=== PATIENT | male | born 1995 | race Hispanic/Latino ===

== ENCOUNTER 2022-09-09 20:00 | Observation (INO) | payer MEDICAID, OTHER ==
[~2022-09-09] VITALS: Ht 182.9 cm; Wt 128.6 kg
[2022-09-09] MEDS ORDERED: SOLU-MEDROL 125MG VIAL IVP ONE (20:30)
[2022-09-09] MEDS ORDERED: BUDESONIDE 0.5 MG/2 ML INH IH SCH (20:30)
[2022-09-09] MEDS ORDERED: IPRATROPIUM/ALBUTEROL SULFATE 3 ML SOLUTION IH ONE (20:30)
[2022-09-09] MEDS ORDERED: ALBUTEROL 0.083% 2.5 MG/3 ML INH IH ONE ×2 (20:30→20:33)
[2022-09-09] MEDS ORDERED: 0.9%NACL 1000ML 1,000 ML IV SCH ×2 (20:30→22:30)
[2022-09-09 20:39] LABS: BASOPHILS % (AUTO) 0.7 % (0.0-5.0); EOSINOPHILS % (AUTO) 5.4 % (0.0-8.0); HEMATOCRIT 45.9 % (42-54); LYMPHOCYTES % (AUTO) 10.1 % (21.0-51.0); MEAN CORPUSCULAR HEMOGLOBIN 30.2 pg (27.0-33.0); MEAN CORPUSCULAR HGB CONC 34.4 g/dL (32.0-36.0); MEAN CORPUSCULAR VOLUME 87.8 fL (79-99); MONOCYTES % (AUTO) 2.6 % (3.0-13.0); NEUTROPHILS % (AUTO) 80.9 % (40.0-77.0); PLATELET COUNT (AUTO) 235 K/uL (130-400); RED BLOOD CELL COUNT(AUTO) 5.23 MIL/uL (4.50-6.20); RED CELL DISTRIBUTION WIDTH 12.5 % (11.0-15.5); WHITE BLOOD COUNT (AUTO) 14.8 K/uL (4.8-10.8)
[2022-09-09 21:08] LABS: ALANINE AMINOTRANSFERASE 46 U/L (12-78); ALBUMIN 2.9 g/dL (3.5-5.0); ASPARTATE AMINOTRANSFERASE 29 U/L (10-37); CARBON DIOXIDE 26 mmol/L (21-32); CHLORIDE 112 mmol/L (101-111); CREATININE 0.8 mg/dL (0.5-1.5); GLOMERULAR FILTR. RATE CALC 122 mL/min (>60); GLUCOSE,RANDOM 92 mg/dL (70-105); SODIUM SERUM 147 mmol/L (136-145); TOTAL PROTEIN, SERUM 5.7 g/dL (6.0-8.3); UREA NITROGEN, BLOOD 10 mg/dL (7-18)
[2022-09-09 21:13] LABS: CREATINE KINASE, TOTAL 593 U/L (21-232); CRP QUANTITATIVE < 2.00 mg/L (0.00-9.0); POTASSIUM 2.8 mmol/L (3.5-5.1)
[2022-09-09] MEDS ORDERED: IPRATROPIUM 0.5 MG/2.5 ML INH IH ONE (21:30)
[2022-09-09] MEDS ORDERED: POTASSIUM BICARB/CIT AC 25 MEQ TABLET.EFF PO ONE (21:30)
[2022-09-09] MEDS ORDERED: MAGNESIUM 4GM PREMIX 100ML 100 ML IV PRN (22:30)
[2022-09-09] MEDS ORDERED: MAGNESIUM 2GM PREMIX 50ML 100 ML IV ONE (22:39)
[2022-09-09] MEDS ORDERED: IPRATROPIUM/ALBUTEROL SULFATE 3 ML SOLUTION IH PRN (23:00)
[2022-09-09] MEDS ORDERED: NITROGLYCERIN 0.4 MG SL TAB SL PRN (23:00)
[2022-09-09] MEDS ORDERED: ONDANSETRON 4MG INJ IV PRN (23:00)
[2022-09-09] MEDS ORDERED: ACETAMINOPHEN 325 MG TAB PO PRN ×2 (23:00)
[2022-09-09 23:05] LABS: APPEARANCE,URINE CLEAR (CLEAR); BILIRUBIN,URINE NEGATIVE (NEGATIVE); GLUCOSE, URINE (UA) NEGATIVE (NEGATIVE); KETONES,URINE NEGATIVE (NEGATIVE); LEUKOCYTE ESTERASE ,URINE NEGATIVE Leu/uL (NEGATIVE); NITRATE,URINE NEGATIVE (NEGATIVE); OCCULT BLOOD,URINE NEGATIVE (NEGATIVE); PROTEIN,URINE NEGATIVE (NEGATIVE); UROBILINOGEN,URINE 0.2 mg/dL (0.2-1.0)
[2022-09-09 23:10] LABS: AMPHET/METH SCREEN,URINE NEGATIVE (NEGATIVE); BARBITURATE SCREEN, URINE NEGATIVE (NEGATIVE); BENZODIAZEPINES SCREEN,URINE POSITIVE (NEGATIVE); CANNABINOID SCREEN,URINE POSITIVE (NEGATIVE); COCAINE SCREEN,URINE POSITIVE (NEGATIVE); COLOR,URINE YELLOW (YELLOW); OPIATE SCREEN,URINE NEGATIVE (NEGATIVE); PHENCYCLIDINE SCREEN,URINE NEGATIVE (NEGATIVE)
[2022-09-09 23:43] LABS: CRP QUANTITATIVE < 2.00 mg/L (0.00-9.0)
[2022-09-10] MEDS: LACTATED RINGERS 1000ML 1,000 ML IV SCH ×2 (00:05→08:35)
[2022-09-10 00:10] VITALS: BP 131/76
[2022-09-10] MEDS: IPRATROPIUM/ALBUTEROL SULFATE 3 ML SOLUTION IH SCH ×2 (01:42)
[2022-09-10] MEDS ORDERED: IPRATROPIUM 0.5 MG/2.5 ML INH IH ONE (01:43)
[2022-09-10] MEDS: IPRATROPIUM 0.5 MG/2.5 ML INH IH SCH ×2 (01:55→06:31)
[2022-09-10 04:00] VITALS: BP 149/63
[2022-09-10] MEDS ORDERED: SOLU-MEDROL 125MG VIAL IVP SCH ×2 (04:00→07:30)
[2022-09-10 06:11] LABS: BASOPHILS % (AUTO) 0.1 % (0.0-5.0); EOSINOPHILS % (AUTO) 0.1 % (0.0-8.0); LYMPHOCYTES % (AUTO) 6.7 % (21.0-51.0); MEAN CORPUSCULAR VOLUME 88.3 fL (79-99); MONOCYTES % (AUTO) 0.7 % (3.0-13.0); NEUTROPHILS % (AUTO) 91.9 % (40.0-77.0); PLATELET COUNT (AUTO) 209 K/uL (130-400); RED BLOOD CELL COUNT(AUTO) 4.87 MIL/uL (4.50-6.20); RED CELL DISTRIBUTION WIDTH 12.6 % (11.0-15.5); WHITE BLOOD COUNT (AUTO) 14.6 K/uL (4.8-10.8)
[2022-09-10 06:45] LABS: ALBUMIN 3.6 g/dL (3.5-5.0); CREATININE 1.2 mg/dL (0.5-1.5); MAGNESIUM 2.1 mg/dL (1.80-2.40); POTASSIUM 4.7 mmol/L (3.5-5.1); TOTAL PROTEIN, SERUM 7.8 g/dL (6.0-8.3)
[2022-09-10 08:00] VITALS: BP 145/74
[2022-09-10] MEDS ORDERED: ENOXAPARIN SODIUM 40 MG/0.4 ML SYRINGE SQ SCH (09:00)
[2022-09-10] MEDS ORDERED: FAMOTIDINE 20MG TAB PO SCH (09:00)
[2022-09-10] MEDS ORDERED: PRED20TA3 PO (09:21)
[2022-09-10] MEDS ORDERED: IPRAHFA IH (09:21)
[2022-09-10] MEDS ORDERED: AZIT500T4 PO (09:21)
== END 2022-09-10 12:30 | disposition still patient (30) ==
LOC: EDH 20:00 → INTOOBSV 20:01 → EDHIP 20:01 → 4BH 23:19
PROVIDERS: ADMIT Hospitalist; ATTEND Hospitalist
DX: J45.901 Unspecified asthma with (acute) exacerbation (principal); Z20.822 Contact with and (suspected) exposure to COVID-19; R65.10 Systemic inflammatory response syndrome (SIRS) of non-infectious origin without acute organ dysfunction; E87.6 Hypokalemia; R79.89 Other specified abnormal findings of blood chemistry; E66.9 Obesity, unspecified; E87.20 Acidosis, unspecified; M62.82 Rhabdomyolysis; F12.90 Cannabis use, unspecified, uncomplicated; Z68.38 Body mass index [BMI] 38.0-38.9, adult; Z79.899 Other long term (current) drug therapy; Z98.890 Other specified postprocedural states
CPT/HCPCS: 99285; 96365; 71045; 96361 ×3; 87635; 96375; 82550 ×3; 83735 ×2; 84484 ×3; 80053 ×2; 83880; 80305; 85025 ×2; 85378; 87040 ×2; 87804 ×2; 83605 ×4; 36415 ×2; 93005; 84145; 81003; 96366; 96376; 96372; 83874 ×2; 94664; 86140 ×2; 94640 ×4; 94760 ×2; C9803; J3475; J2930 ×3; G0378; J1650

== ENCOUNTER → 2025-08-24 | Emergency (ER) | payer OTHER ==
[~2025-08-24] VITALS: Ht 182.9 cm; Wt 104.3 kg
[~2025-08-24] MED LIST: AZIT500T4 PO; IPRAHFA IH; PRED20TA3 PO
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
[2025-08-24 14:24] LABS: IMMATURE GRANULOCYTE ABSOLUTE 0.01 K/uL (0-1); NUCLEATED RED BLOOD CELLS 0.0 % (0.0-0.19); PLATELET COUNT (AUTO) 206 K/uL (130-400); RED BLOOD CELL COUNT(AUTO) 5.47 MIL/uL (4.50-6.20); RED CELL DISTRIBUTION WIDTH 12.6 % (11.0-15.5); WHITE BLOOD COUNT (AUTO) 6.0 K/uL (4.8-10.8)
[2025-08-24 14:34] LABS: CREATININE 1.2 mg/dL (0.5-1.3); GLOMERULAR FILTR. RATE CALC 83.0 mL/min (>90); GLUCOSE,RANDOM 91.0 mg/dL (70-105); SODIUM SERUM 137.0 mmol/L (136-145); UREA NITROGEN, BLOOD 9.0 mg/dL (7-18)
[2025-08-24 14:38] LABS: INR 1.02 (0.85-1.15)
[2025-08-24 15:30] VITALS: BP 136/86; PULSE 99; RESP 18; TEMP 97.9; O2SAT 99
== END ==
LOC: EDH 13:27
DX: K64.9 Unspecified hemorrhoids (principal); E66.9 Obesity, unspecified; J45.909 Unspecified asthma, uncomplicated; Z79.52 Long term (current) use of systemic steroids
CPT/HCPCS: 36415; 80048; 85025; 85610; 85730; 99283